=== PATIENT | female | born 1990 | race Hispanic/Latino ===

== ENCOUNTER 2025-06-17 19:29 | Emergency (ER) | payer OTHER, SELFPAY ==
[2025-06-17 19:36] VITALS: BP 142/94
[2025-06-17 19:48] LABS: Hematocrit 43.3 % (37.0-47.0); Hemoglobin 15.3 g/dL (12.0-16.0); Mean Corp Hgb Conc. 35.3 g/dL (33.0-37.0); Mean Corpuscular Volume 87.5 fL (81.0-99.0); Nucleated Red Blood Cells % 0 %; Platelet Count 214 10^3/uL (130-400); Red Cell Dist. Width 13.4 % (11.5-14.5)
[2025-06-17 19:49] VITALS: BMI 37.2
[2025-06-17 20:10] LABS: Blood Urea Nitrogen 13 mg/dl (7-17); Calcium 10.1 mg/dl (8.4-10.2); Carbon Dioxide 31 mmol/L (22-30); Chloride 105 mmol/L (98-107); Estimated Creatinine Clearance > 125 ml/min; Glucose 106 mg/dl (70-99); Potassium 2.9 mmol/L (3.5-5.1); Sodium 140 mmol/L (135-145); eGFR > 60.00
--- NOTE | 2025-06-17 20:10 | ED.GENMED ---
History of Present Illness
General
Chief Complaint: Crisis Evaluation
Time Seen by Provider: 06/17/25 19:39
History of Present Illness
History of Present Illness:
34-year-old female presents the emergency department via EMS under a 302 petition. History of schizophrenia, according to 302 petition she stopped taking her medications recently and has been unable to care for herself. Not showering or eating.
She has also been walking the streets close lives and responding to internal stimuli. When discussing with the patient she states that she has many disagreements with her mother and has been confrontations with her recently. She does admit to
hallucinations but states that she does not interact with them, she occasionally 'talk to myself' when she is upset. She admits to stopping the Invega that she was receiving as well as Latuda over the past several months as they were 'making me
sick'. States she was having heart palpitations and increased anxiety while on these meds. Denies any SI or HI at this time she does admit to not eating/drinking/bathing herself as she was 'scared that the water would burn my eyes'
Past History
Past History
ED Past Medical History: Psychiatric
Social History
Alcohol: None
Drug: Other (heroin)
Review of Systems
Review of Systems
Allergies reviewed?: Yes
All Other Systems: ROS reviewed and negative except as documented in HPI and ROS
Phy Exam
Physical Exam
Physical Exam:
GEN: Disheveled but acutely well-appearing, NAD, WDWN
HEENT: Oral mucosa moist, no scleral icterus
Cardiac: Regular rate
Lung: No respiratory distress, no tachypnea
MSK: No gross deformity or injuries
Skin: Good color, no pallor or jaundice, no rashes
Neuro: AO x3, moves all extremities freely
Psych: Disheveled with poor hygiene, calm and cooperative, not responding to internal stimuli on exam
Course
Orders/Labs/Results
Orders:
Orders
06/17/25 19:33
Crisis Consult Urgent
Reason for Consult: 302
06/17/25 19:34
Test Result ONCE
06/17/25 19:37
Alcohol Urgent
Basic Metabolic Panel Urgent
Complete Blood Count/With Diff Urgent
HCG, Serum Qualitative Screen Urgent
Comment: Notify provider if positive test present
Urine Drug Abuse Screen Urgent
Date Specimen was Collected: 06/17/25
Time Specimen was Collected: 19:34
06/17/25 19:51
ED Special Safety Observation Q4
Observation level: One to Two
06/17/25 20:20
Potassium Chloride [KCl] 40 meq PO NOW STA
Abnormal Lab Results
06/17/25
19:37
MPV 11.2 H fL
(7.4-10.4)
Potassium 2.9 L mmol/L
(3.5-5.1)
Carbon Dioxide 31 H mmol/L
(22-30)
Glucose 106 H mg/dl
(70-99)
U Marijuana (THC) Screen Positive H
(Negative)
06/17/25 19:37
06/17/25 19:37
Vital Signs
Initial and Last Documented VS:
Initial Vital Signs
Temp Pulse Resp BP Pulse Ox
98.4 F 78 18 142/94 100
06/17/25 19:36 06/17/25 19:36 06/17/25 19:36 06/17/25 19:36 06/17/25 19:36
Last Documented Vital Signs
Temp Pulse Resp BP Pulse Ox
98.4 F 78 18 142/94 100
06/17/25 19:36 06/17/25 19:36 06/17/25 19:36 06/17/25 19:36 06/17/25 20:12
MDM/Problems Addressed
MDM/Problems Addressed:
34-year-old female presents with decompensated schizophrenia secondary to med medication noncompliance. She will be admitted under 3022 at [facility] for further stabilization and treatment.
*Pulse Oximetry
SaO2: 100
Oxygen Mode of Delivery: Room air
Patient hypoxic: no
*Critical Care Note
Total Time (30-74mins, 75-104mins- exclusive of procedures): Not Applicable
Update Note
Update Note:
Reviewed telepsychiatry consultation notes, recommending inpatient on the basis of decompensation and medication noncompliance. In agreement with this assessment. Patient will remain in the ED while awaiting bed search
2207: Patient reassessed, remains calm in exam room, not responding to internal stimuli, no acute complaints.
ED Attending Note
-
Portions of this chart may have been created with voice recognition software.� Occasional wrong word or��sound alike� substitutions may have occurred due to the inherent limitations of voice recognition software.
Discharge Plan
Departure
Patient Disposition: Psych Facility
Date of Disposition: 06/17/25
Time of Disposition: 22:10
Discharge Problem:
Schizophrenia, acute
Prescriptions:
No Action
ferrous sulfate 325 mg (65 mg iron) Tablet
325 mg PO DAILY
lurasidone 80 mg Tablet
80 mg PO DAILY
Wegovy 0.5 mg/0.5 mL Pen Injector
0.5 mg SC QWEEK
Referrals:
UNKNOWN - PT NOT,INTERVIEWE [Family Provider]
Interventions
Interventions:
*Risk Screen - Suicide Last Done: 06/17/25 19:44
*General Assessment Last Done: 06/17/25 19:44
*Neglect/Abuse Screening Last Done: 06/17/25 19:44
*ED- Fall Risk Assessment Last Done: 06/17/25 19:44
*ED COVID-19 Vaccine History Last Done: 06/17/25 19:44
ED-Psychological Assessment Last Done: 06/17/25 19:55
Discharge Date and Time
Print Language: ROMANIAN
[2025-06-17 20:19] LABS: HCG, Serum Qualitative Screen Negative
--- NOTE | 2025-06-17 20:38 | PHANOTE ---
06/17/2025, not able to interview pt. directly; used pharmacy records to compile a list of pt.'s meds.; no ecw records exist for pt.; could not confirm pt.'s meds.
[2025-06-17] MEDS: KCL 40 MEQ PO (20:44)
[2025-06-17 22:29] VITALS: BP 142/102
--- NOTE | 2025-06-18 02:27 | DOWNTIME ---
There was a [employer] Client [employer]thing [employer] Operator Downtime on 06/18/2025 from 0100 to 06/18/2025 at 0220. Downtime documentation of patient's care, including medication administrations, has been reconciled in the electronic record per guidelines. Refer to the
patient's paper chart under the miscellaneous tab to see printed paper medication records and downtime forms.
[2025-06-18 02:58] VITALS: BP 131/93
== END 2025-06-18 03:00 ==
LOC: EMR 19:29
PROVIDERS: Emergency Medicine; EMERGENCY PHYSICIAN Emergency Medicine
DX: F20.9 Schizophrenia, unspecified (principal); Z91.148 Patient's other noncompliance with medication regimen for other reason
CPT/HCPCS: 99285; 80048; 80306; 82077; 84703; 85025